=== PATIENT | female | born 1955 | race Caucasian/White ===

== ENCOUNTER → 2017-08-31 | Outpatient (CLI) | payer BC ==
--- NOTE | 2017-08-31 17:51 | CONS ---
CONSULTATION PRIMARY CARE PHYSICIAN: Dr. Leos. 61-year-old female patient was diagnosed having obstructive sleep apnea approximately 12 years ago through our sleep center. Back then, the patient was evaluated by Dr. Gray and she was given a CPAP pressure of 8 cm of water. Over the past 12 years, the patient has been very compliant with CPAP machine. She has been using it on a regular basis. She thinks it is time to look for a different machine knowing that her machine has been old and at times it has been malfunctioning. She has benefit from treatment for many years and she has been using it regularly as mentioned. No snoring while on the CPAP machine. She is using an air Carr FX nasal pillows. She wakes up alert and awake and her morning headaches have also recovered from CPAP therapy. She goes to bed around 9 p.m., wakes up at 5:00 a.m. in the morning. No snoring while on the treatment. No other new complaints. No significant change in her body weight. Her Blanch score is 11. No sleep paralysis. No hallucinations. No cataplexy. No restlessness in lower extremities. PAST MEDICAL HISTORY: Past medical history is: 1. Complicated diverticulitis. 2. Obstructive sleep apnea. 3. Degenerative arthritis. PAST SURGICAL HISTORY: Surgical history includes hernia repair in 2008. Left shoulder ORIF in 2008. Colon resection in 2007. Colostomy 2012 and colostomy reversal in 2013. Hysterectomy and oophorectomy in 1984 and 1985. DRUG ALLERGIES: Not known. OUTPATIENT MEDICATIONS ARE: 1. Super B complex. 2. Vitamin D3. 3. Aspirin. 4. Fish oil. SOCIAL HISTORY: The patient is a nonsmoker. No history of alcohol. No IV drugs. She smokes occasionally cigars. FAMILY HISTORY: Negative for sleep apnea. REVIEW OF SYSTEMS: 12-point review of system was done. Essentially negative other things mentioned above. No issues with insomnia, grinding of the teeth. No dysuria, frequency, urgency or nocturia. No anxiety or panic attacks. No palpitations. No chest pain. No shortness of breath. No heartburn. No nausea or vomiting. No aerophagia. No falls. No change in mental status. PHYSICAL EXAMINATION: Her current BP is 133/91, pulse 86, respirations 16, temperature 97.8, saturation 98% on room air. Weight is 153, height is 5 0 weight is BMI is 29. Neck size is 14 inches. General appearance calm and comfortable. Head is atraumatic, normocephalic. NECK: Supple. There is no JVD. No goiter or neck masses. LUNGS: Clear to auscultation. HEART: Sounds regular rate and rhythm. Normal S1, S2. No S3. No murmurs. ABDOMEN: Soft, nontender. No organomegaly. EXTREMITIES: No edema. No cyanosis or clubbing. NEUROLOGIC: Alert and oriented x3. There is no focal neurological deficits. PSYCHIATRIC: No anxiety or depression. Skin is negative for any wounds or ulceration. IMPRESSION: Obstructive sleep apnea. The patient is coming in for reevaluation. The patient is interested in updating her CPAP unit. Her last evaluation was approximately 12 years ago. PLAN: 1. Proceed with a home sleep study to reestablish the presence and severity of obstructive sleep apnea. If positive will proceed with APAP unit. 2. Encourage weight loss. 3. Implement good sleep hygiene measures. 4. Will continue to follow. MMODL / IJN: [id number] /
== END | disposition home or self-care (01) ==
LOC: SLEEP 16:38
PROVIDERS: ATTEND Internal Medicine Critical Care Medicine
DX: G47.33 Obstructive sleep apnea (adult) (pediatric) (principal); M19.90 Unspecified osteoarthritis, unspecified site; Z99.89 Dependence on other enabling machines and devices; Z79.899 Other long term (current) drug therapy; Z79.82 Long term (current) use of aspirin
CPT/HCPCS: 99211

== ENCOUNTER → 2017-11-16 | Outpatient (CLI) | payer BC ==
--- NOTE | 2017-11-16 18:06 | PN ---
PROGRESS NOTE This patient, 61, was diagnosed having obstructive sleep apnea with an AHI of 12.8, worse while supine. The patient was given an APAP machine with a minimum pressure of 5, maximum pressure of 20, with an AirFit P10 nose pillow. On today's evaluation the patient reports marked improvement in sleep quality. She is very happy with her CPAP machine. She is benefitting from the treatment. I looked at the compliancy data; the patient has been using her CPAP every night. Her CPAP use for more than 4 hours is 100%. She is averaging around 7 hours of CPAP use per night and the patient's average CPAP pressure is around 10.8 with a leak factor of 2 L/minute and an AHI down to 1.2. She has no complaints. She is waking up much more alert and refreshed during the day. The snoring has completely subsided and the patient has no complaints at all. REVIEW OF SYSTEMS: Twelve-point review of systems was done. Positive findings are all mentioned above in the history of present illness. PHYSICAL EXAMINATION: BP is 129/65, pulse 78, respirations 16, temperature 97.5, saturation 99% on room air. Weight is 152. GENERAL APPEARANCE: Calm, comfortable. Head is atraumatic, normocephalic. NECK: Crowding in posterior pharynx. Mallampati class IV. There is no goiter or neck masses. LUNGS: Clear to auscultation. HEART: Sounds are regular rate and rhythm. Normal S1, S2. No S3, S4. No murmurs. ABDOMEN: Soft, nontender. No organomegaly. EXTREMITIES: No edema. No cyanosis or clubbing. NEUROLOGIC: Alert and oriented x3. No focal neurological deficits. PSYCHIATRIC: Negative for anxiety or depression. IMPRESSION: Symptomatic obstructive sleep apnea with an AHI of 12.8, currently on APAP treatment, which has been successful, and the patient has been demonstrating excellent compliance and clinical response. PLAN: 1. Continue APAP treatment at the same setting. 2. AirFit P10 nose pillows. 3. The patient is benefitting and the patient is compliant. She will see me back in followup if needed. No need for any adjustments on her pressure setting at this point in time. MMODL / IJN: [id number] /
== END | disposition home or self-care (01) ==
LOC: SLEEP 16:32
PROVIDERS: ATTEND Internal Medicine Critical Care Medicine
DX: G47.33 Obstructive sleep apnea (adult) (pediatric) (principal); Z99.89 Dependence on other enabling machines and devices

== ENCOUNTER → 2019-04-25 | Outpatient (CLI) | payer BC ==
--- NOTE | 2019-04-25 16:23 | PN ---
PROGRESS NOTE Ricarda is 63 coming in for a yearly check regarding obstructive sleep apnea. The patient has mild REID with an AHI of 12.8, and the patient is currently using a CPAP at an automatic pressure of 5 minimum, 20 maximum. The patient is using Carr FX small- sized mask. She is doing well. She is compliant. She is averaging more than 4 hours throughout the night. Average CPAP is around 7.6 hours per night, while on treatment, the patient's AHI is down to 0.9 and the leak is 3 L/minutes. No major tiredness and sleepiness during the day. Deerfield score is at 10. No nausea, vomiting. No aerophagia. No morning headaches. No altered mentation. Her weight is currently at 148 which is 4 pounds less compared to last few year. REVIEW OF SYSTEMS: Fourteen-point review of system was done. Positive findings are mentioned in history of present illness. No major hypersomnia or sleepiness. No falling asleep while driving. No naps during the day. No substance abuse. No headaches. No altered mentation. No seizure activity. No sinus infections. No nasal congestion or postnasal drainage. No cough sputum production. No chest pain or angina. No palpitation. No nausea, vomiting, or diarrhea. No dysuria, frequency or urgency. No falls. No wounds or ulceration. BP is 134/72, pulse is 76, respirations 16, temperature 98.1, weight is 148. BMI is 28.2, and saturation 99%. GENERAL: Calm, comfortable. Head is atraumatic, normocephalic. NECK: Supple. There is no JVD. No goiter or neck masses. Mallampati class IV. LUNGS: Clear to auscultation. HEART: Sounds are regular rate and rhythm. Normal S1, S2. No S3. No murmurs. ABDOMEN: Soft, nontender. No organomegaly. EXTREMITIES: No edema. No cyanosis or clubbing. Neurologically: She is awake, and alert and there are no focal neurological deficits. PSYCHIATRIC: Negative for anxiety or depression. IMPRESSION: 1. Symptomatic obstructive sleep apnea mild with an AHI of 12.8, currently on a BiPAP with successful treatment. 2. Chronic anxiety. 3. Osteoporosis. PLAN: 1. Proceed with APAP therapy at the same level of pressure. 2. Switch this patient to a DreamWear under the nose small size mask with a small size head gear. 3. Encourage further weight loss. 4. Treatment was successful. The patient has no complaints for now. We will continue the treatment. We will make further recommendations based on her overall progress. MMODL / IJN: [id number] /
== END | disposition home or self-care (01) ==
LOC: SLEEP 13:21
PROVIDERS: ATTEND Internal Medicine Critical Care Medicine
DX: G47.33 Obstructive sleep apnea (adult) (pediatric) (principal); F41.1 Generalized anxiety disorder; M81.0 Age-related osteoporosis without current pathological fracture; Z99.89 Dependence on other enabling machines and devices